=== PATIENT | female | born 1955 | race Caucasian/White ===

== ENCOUNTER 2018-07-20 10:27 | Outpatient (CLI) | payer MEDICARE ==
[~2018-07-20 10:27] MED LIST: Iopamidol 370 76% 75 ML VIAL FS ONE
--- NOTE | 2018-07-20 12:07 | CT ---
CT ABDOMEN AND PELVIS WITH IV CONTRAST: INDICATIONS: History of bloating, gas, diarrhea, and right lower quadrant abdominal pain for the past two months, with a history of a prior cholecystectomy and liver transplant. History of hepatitis-C. COMPARISON: CT abdomen and pelvis dated 08/26/2012 at [facility] and an additional comparison f rom [facility] dated 12/10/2010. CONTRAST: Isovue-370 60 mL. FINDINGS: There is worsening cirrhotic morphology of the transplanted liver, with extensive nodularity along th e contour of the liver, and heterogeneous enhancement. No definite focal mass lesion is evident. The choledochojejunostomy is again noted. There is worsening pneumobilia within the intrahepatic darlyn iary ducts. There is worsening mild to moderate ascites. The perisplenic varicosities appear slightly more promi nent, with worsening paraesophageal varicosities. The spleen measures 18 cm in length, which is stable to the prior exam. There is some subjective wall thickening involving portions of the distal stomach body, as well as an trum, and portions of the duodenum, which may reflect changes of underlying peptic ulcer disease. Th e sigmoid colon and rectum are largely decompressed, which limits the evaluation. A mild protoccoliti s within this region is not excluded. There is a normal appendix in the right lower quadrant. The small bowel has a normal caliber. There are mild vascular calcifications involving the abdominal aorta. No pathologically enlarged lymph nodes are grossly evident. No definite acute osseous abnormality is evident. IMPRESSION: 1. Worsening cirrhosis of the liver, with worsening portal hypertension. The perisplenic and paraes ophageal varicosities have worsened. There is worsening ascites. 2. Worsening pneumobilia from the choledochojejunostomy. 3. Suggestive wall thickening involving the gastric antrum and proximal duodenum may reflect underly ing peptic ulcer disease. 4. Decompression of the sigmoid colon and rectum limits evaluation. This could be related to perist alsis; however, a proctocolitis cannot be entire excluded. POS: LALO
== END 2018-07-20 10:28 | disposition home or self-care (01) ==
LOC: SCSCT 10:27
PROVIDERS: ATTEND Internal Medicine Gastroenterology
DX: K52.9 Noninfective gastroenteritis and colitis, unspecified (principal); R10.31 Right lower quadrant pain; D84.9 Immunodeficiency, unspecified; I85.00 Esophageal varices without bleeding; R18.8 Other ascites; K74.60 Unspecified cirrhosis of liver; K76.6 Portal hypertension; I86.8 Varicose veins of other specified sites; K83.8 Other specified diseases of biliary tract; Z94.4 Liver transplant status; Z98.0 Intestinal bypass and anastomosis status
CPT/HCPCS: 74177

== ENCOUNTER 2018-07-30 17:59 | Observation (INO) | payer MEDICARE ==
[2018-07-30] MEDS ORDERED: Morphine 10 MG/ML VIAL ONE (19:42)
[2018-07-30] MEDS ORDERED: hydrALAZINE 20 MG/ML VIAL ONE (19:43)
[2018-07-30] MEDS ORDERED: Ondansetron PF 4 MG/2 ML Vial ONE (19:43)
[2018-07-30 21:38] VITALS: BMI 22.3
[2018-07-30] MEDS ORDERED: Acetaminophen 325 MG TAB PO PRN (22:19)
[2018-07-30] MEDS ORDERED: hydrALAZINE 20 MG/ML VIAL SLOW IVP PRN (22:20)
[2018-07-30] MEDS ORDERED: Vancomycin HCl 25 MG/ML Oral PO SCH (22:30)
[2018-07-30] MEDS: Zolpidem Tartrate 5 MG TAB PO SCH (22:56)
[2018-07-30] MEDS: Nicotine 14 MG PATCH TOP SCH (22:57)
[2018-07-30] MEDS ORDERED: Zolpidem Tartrate 5 MG TAB PO SCH (23:00)
[2018-07-30] MEDS: Ondansetron PF 4 MG/2 ML Vial IVP PRN (23:05)
[2018-07-30] MEDS ORDERED: Tacrolimus 0.5 MG CAP PO SCH (23:45)
[2018-07-31] MEDS: Morphine 4 MG/ML VIAL SLOW IVP PRN ×5 (02:21→20:27)
[2018-07-31] MEDS ORDERED: Dextrose 50% Abboject 50 ML SYRINGE SLOW IVP PRN (03:57)
[2018-07-31] MEDS ORDERED: HumaLOG 300 UNITS/3 ML VIAL SC PRN (03:57)
[2018-07-31] MEDS ORDERED: Dextrose 5% in Water 1,000 ML IV PRN (03:57)
[2018-07-31] MEDS: cefTRIAXone\\ROCEPHIN 1 GM in Sodium Chloride 0.9% 100 ML IVPB SCH (04:58)
--- NOTE | 2018-07-31 05:15 | HP ---
PRIMARY CARE PHYSICIAN: Dr. Santosh Torrez. CODE STATUS: Full code. TIME OF EVALUATION: 9 p.m. CHIEF COMPLAINT: Abdominal pain and diarrhea. HISTORY OF PRESENT ILLNESS: This is a 63-year-old female with past medical history of C diff, hepatitis C, hypertension, diabetes, and previous liver transplant, came to the hospital after having abdominal pain that is severe and is diffuse, with no clear triggers, no alleviating factors. The patient has a history of recent C diff, and she reported that she has been having still more diarrhea. Symptoms are generalized pain that is dull in nature. Pain is 10/10 and needing opioid medication for optimal control, CAT scan showed the patient has significant ascites. REVIEW OF SYSTEMS: CONSTITUTIONAL: The patient had no fevers. She reported chills and generalized weakness. RESPIRATORY: No cough, sputum production, or shortness of breath. CARDIOVASCULAR: No chest pain or palpitations. GASTROINTESTINAL: The patient has nausea. No vomiting. Diarrhea. The patient also reported abdominal pain that is severe and diffuse as described in HPI. PARTY DIRECTOR: No dizziness, headache, or feeling lightheaded. GENITOURINARY: No burning on urination. EXTREMITIES: No leg swelling. All other systems were reviewed and negative except for the findings mentioned above. PAST MEDICAL HISTORY: As mentioned in HPI. PAST SURGICAL HISTORY: Liver transplant x2, tubal ligation, surgical history of cholecystectomy, and surgical history of tonsillectomy. PSYCHIATRIC HISTORY: Depression. FAMILY HISTORY: Reviewed and non contributory to current presentation. SOCIAL HISTORY: The patient uses drugs, abuses marijuana, last time using drugs three days ago. Currently uses tobacco, smokes half a pack per day. FAMILY HISTORY: Reviewed, noncontributory for current presentation. KNOWN ALLERGIES: Penicillin and shellfish-containing products. REPORTED MEDICATIONS: 1. Tacrolimus. 2. Levothyroxine. 3. Losartan. 4. Pantoprazole. 5. Venlafaxine. 6. Simvastatin. 7. Tacrolimus. 8. Eszopiclone. PHYSICAL EXAMINATION: VITAL SIGNS: On presentation; blood pressure with heart rate 69, respiratory rate was 12, and temperature 98.1, pain was 8, and oxygen saturation was 98% on room air. GENERAL APPEARANCE: The patient is alert, oriented, in distress due to pain. HEENT: Eyes, normal conjunctivae. Moist oral mucosa. Anicteric. No JVD. RESPIRATORY: Bilateral air entry. No rales. No wheezing. Symmetric expansion. CARDIOVASCULAR: The patient is mildly tachycardic on my examination, regular rhythm. No murmurs, no gallops. No edema. ABDOMEN: Soft, tender, mildly distended. MUSCULOSKELETAL: Baseline range of motion and strength. No tenderness. SKIN: Warm, intact. No pallor. No rash. No redness except for the right arm, that has some petechial ecchymosis after the patient had the blood pressure measured. Peripheral pulses are present. Capillary refill seems to be intact. NEURO: No evidence of any new focal weakness. Baseline speech. Cranial nerves seem to be intact. PSYCH: The patient is in good mood. No anxiety. Optimal judgment. DIAGNOSTIC DATA: CAT scan, worsened ascites since the prior study in January 2018. LABORATORY DATA: Labs were reviewed. The patient has lipase of 42, glucose 144 , BUN 20, creatinine 1.28, sodium 141, potassium 3.2, chloride 107, carbon dioxide 23, calcium 9.2, bilirubin 1.1 total, and alkaline phosphatase 63. LFTs were negative. Albumin 4.0. CBC; white count 3.0, hemoglobin 13.4, hematocrit 38.3, and platelets 61. ASSESSMENT AND PLAN: The patient will be placed in the hospital with following medical problems: 1. Severe abdominal pain. This could be related to possible underlying Clostridium difficile colitis, the patient had recent Clostridium difficile, had been treated for it and had not finished her medications. We will continue vancomycin p.o., we will follow Clostridium difficile test that is pending. 2. Possible Clostridium difficile colitis. Treatment as mentioned above. 3. Ascites. The patient with history of liver transplant and severe abdominal pain, possibility for SBP remains. We will place the patient on Rocephin 1 g now. The patient will need a tap and some studies in the morning for further diagnosis. 4. History of liver transplant. It is reported by the patient that liver had been failing in the past. We will reconcile the home medications and immunosuppressant therapy. 5. History of hepatitis C. LFTs are within normal range. This is chronic. 6. Uncontrolled hypertension, likely due to acute severe pain, we will reconcile home medications, we will adjust the treatment. We will treat the pain first. 7. Uncontrolled diabetes. We will place the patient on a sliding scale for optimal control. 8. Deep venous thrombosis prophylaxis. Job ID: [id number] MTDD
[2018-07-31 06:42] LABS: #Eosinphils 0.1 thou/uL (0.0-0.7); #Lymphocytes 0.6 thou/uL (1.20-3.40); #Monocytes 0.2 thou/uL (0.11-0.59); #Neutrophils 2.5 thou/uL (1.40-6.50); %Basophils 0.3 % (0.0-1.0); %Eosinophils 2.8 % (0.0-10.0); %Lymphocytes 18.7 % (21.0-51.0); %Monocytes 6.8 % (0.0-10.0); %Neutrophils 71.5 % (42.0-75.0); Mean Corpuscular HGB CONC 34.1 g/dL (32.0-36.0); Mean Corpuscular Hemoglobin 31.9 pg (27.0-31.0); Mean Corpuscular Volume 93.4 fL (78.0-98.0); Mean Platelet Volume 7.8 fL (7.4-10.4); Platelet Count 59 thou/uL (130-400); RBC Distribution Width 13.2 % (11.5-14.5); Red Blood Cell (RBC) Count 4.09 mill/uL (4.20-5.40); White Blood Cell (WBC) Count 3.4 thou/uL (4.8-10.8)
[2018-07-31 07:00] LABS: Anion Gap 14 mmol/L (10-20); BUN (Urea Nitrogen) 18 mg/dL (9.8-20.1); Calc. Creatinine Clearance 46 mL/min (70-130); Calcium 9.1 mg/dL (7.8-10.44); Carbon Dioxide 23 mmol/L (23-31); Chloride 105 mmol/L (98-107); Estimated GFR-MDRD 46; Glucose 139 mg/dL (80-115); Potassium 3.2 mmol/L (3.5-5.1); Sodium 139 mmol/L (136-145)
[2018-07-31] MEDS: Ondansetron PF 4 MG/2 ML Vial IVP PRN (07:55)
[2018-07-31] MEDS ORDERED: TACROLIMUS 0.1% TOP SCH (09:00)
[2018-07-31] MEDS ORDERED: Tacrolimus 1 MG CAP PO SCH (09:00)
[2018-07-31] MEDS ORDERED: Vancomycin HCl 25 MG/ML Oral PO SCH (09:00)
[2018-07-31] MEDS ORDERED: Prevnar 13-Val Conj/PF 0.5 ML SYRINGE IM ONE (09:00)
[2018-07-31] MEDS: Vancomycin HCl 25 MG/ML Oral PO SCH ×2 (09:00→14:31)
[2018-07-31] MEDS: Promethazine HCl 12.5 MG in Sodium Chloride 0.9% 50 ML IVPB PRN ×2 (09:38→20:20)
--- NOTE | 2018-07-31 14:16 | CON ---
DATE OF CONSULTATION: HISTORY OF PRESENT ILLNESS: The patient is a 63-year-old female, patient of Dr. Canales, who over the last several weeks has developed increasing abdominal pain, distention, nausea, and vomiting. She is status post a liver transplant x2 in 1999 for cirrhosis related to hepatitis C. The patient was treated for hepatitis C approximately 3 years ago and had according to the record sustained viral response. She had seen Dr. Canales approximately 6-7 years ago and then recently returned in June. She was treated for C. difficile based on antigen positive, toxin negative stool sample with positive lactoferrin. She reports she has had persistent diarrhea approximately 7-8 times per day without blood or mucus. Dr. Canales treated her with vancomycin for approximately 10 days with not much change in her diarrhea. She does report weight loss, but cannot quantify the amount. She underwent a CT in an outlying hospital, which according to the ER physician showed ascites, cirrhosis, but no other abnormalities. PAST MEDICAL HISTORY: Significant for: 1. Liver transplant in 1999 with the original transplanted liver failing. The patient had to undergo a subsequent choledochojejunostomy. 2. Chronic hepatitis C - status post treatment with sustained viral response. 3. Gastroesophageal reflux disease. 4. Anxiety disorder. 5. Diabetes mellitus 2 - no treatment for the last several months. 6. Hypertension. PAST SURGICAL HISTORY: Includes liver transplant x2, cholecystectomy, and tubal ligation. HOME MEDICATIONS: Include: 1. Prograf 1 mg p.o. q.a.m. and 0.5 mg p.o. q.p.m. 2. Effexor 150 mg p.o. daily. 3. Zocor 40 mg p.o. daily. 4. Cozaar 100 mg p.o. daily. 5. Synthroid 50 mcg p.o. daily. 6. Lunesta 1 mg p.o. at bedtime. 7. Pantoprazole 40 mg p.o. daily. ALLERGIES: INCLUDE LASIX, PENICILLIN, AND SHELLFISH. SOCIAL HISTORY: She does not drink. She does smoke 2-3 cigarettes per day. FAMILY HISTORY: Negative for GI or liver disease. REVIEW OF SYSTEMS: Ten systems were reviewed and were negative except for above. PHYSICAL EXAMINATION: VITAL SIGNS: Temperature 98.4, pulse 120, respiratory rate 18, blood pressure 149/50. GENERAL: Shows a well-developed, well-nourished white female, in no acute distress. HEENT: Unremarkable. NECK: Supple. CHEST: Clear. CARDIOVASCULAR: Regular rate and rhythm without murmurs or gallops. ABDOMEN: Soft, slightly protuberant. She has a transplant scar. She does have splenomegaly felt in the left upper quadrant. No hepatomegaly is appreciable. RECTAL: Deferred. EXTREMITIES: Showed no excessive fluid. LABORATORY DATA: Shows a white blood cell count of 3.4, hemoglobin 13, hematocrit 38.2, platelet counts 59. Chemistries show a potassium 3.2, creatinine 1.20, glucose 139, calcium 9.1. Reviewing records, the patient did have an abdominal and pelvic CT from 07/20/2018, which showed worsening cirrhosis of the liver and worsening portal hypertension with perisplenic and periesophageal varicosities, pneumobilia from previous choledochojejunostomy, some wall thickening of the gastric antrum and proximal duodenum. ASSESSMENT: 1. Right-sided abdominal pain - I suspect this is probably related to the patient's fairly new onset and worsening ascites. It appears fairly mild and the patient appears comfortable. It should not require intravenous narcotics. 2. Status post liver transplant. 3. Decompensated cirrhosis. 4. History of hepatitis C. 5. Status post choledochojejunostomy. 6. History of multiple episodes of pancreatitis. 7. Diabetes mellitus - the patient's blood sugars have been low and has not been presently treated. 8. Gastroesophageal reflux disease. 9. Abnormal CT of the antrum and body. 10. Ascites. RECOMMENDATIONS: 1. Begin diuretics to control ascites. 2. PPI. 3. EGD. 4. LFTs and amylase and lip[facility]. Job ID: [id number]
--- NOTE | 2018-07-31 14:39 | PDOC.PN ---
- Subjective Encounter Start Date: 07/31/18 Encounter Start Time: 14:37 Subjective: c/o severe abd pain, intractable nausea and diarrhea -: feels bad and feels that no one has done anything for her - Objective Resuscitation Status - Order Detail: 07/30/18 22:42 Resuscitation Status Routine Resuscitation Status: FULL: Full Resuscitation MAR Reviewed: Yes Vital Signs & Weight: Vital Signs (12 hours) Temp Pulse Resp BP BP Pulse Ox 07/31/18 11:20 98.4 F 120 H 18 149/50 H 96 07/31/18 08:32 76 07/31/18 08:00 97.9 F 76 20 204/92 H 95 07/31/18 04:00 98.4 F 74 20 155/71 H 96 Weight Weight 130 lb 1.164 oz I&O: 07/30/18 07/31/18 08/01/18 06:59 06:59 06:59 Intake Total 425 400 Balance 425 400 Result Diagrams: 07/31/18 05:48 07/31/18 05:47 Additional Labs: Accuchecks 07/31/18 07/31/18 11:20 04:27 POC Glucose 157 H 158 H Phys Exam - Physical Examination Constitutional: NAD uncomfortable HEENT: PERRLA, moist MMs, sclera anicteric, oral pharynx no lesions Neck: no nodes, no JVD, supple, full ROM Respiratory: no wheezing, no rales, no rhonchi, clear to auscultation bilateral Cardiovascular: RRR, no significant murmur Gastrointestinal: soft, positive bowel sounds +ve fluid wave,distended,mild TTP lower quadrants Musculoskeletal: no edema, pulses present Neurological: non-focal, normal sensation, moves all 4 limbs Psychiatric: normal affect, A&O x 3 Skin: no rash Dx/Plan (1) Abdominal pain Code(s): R10.9 - UNSPECIFIED ABDOMINAL PAIN Status: Acute (2) Intractable nausea and vomiting Code(s): R11.2 - NAUSEA WITH VOMITING, UNSPECIFIED Status: Acute (3) C. difficile diarrhea Code(s): A04.72 - ENTEROCOLITIS D/T CLOSTRIDIUM DIFFICILE, NOT SPCF RECUR Status: Acute (4) Ascites Code(s): R18.8 - OTHER ASCITES Status: Chronic Comment: on prophylactic Abx for SBP (5) Chronic liver disease and cirrhosis Code(s): K74.60 - UNSPECIFIED CIRRHOSIS OF LIVER; K76.9 - LIVER DISEASE, UNSPECIFIED Status: Chronic (6) Hepatitis C Code(s): B19.20 - UNSPECIFIED VIRAL HEPATITIS C WITHOUT HEPATIC COMA Status: Chronic (7) S/P liver transplant Code(s): Z94.4 - LIVER TRANSPLANT STATUS Status: Chronic - Plan DVT proph w/SCDs EGD per GI.cont supportive care -: Increase dose of PO Vanco. PRN anti emetics -: may need paracentesis. cont rocephin prophylactically -: repeat Cdif testing -: start diuretics and check lipase.am labs. * . Review of Systems - Review of Systems Constitutional: weakness, malaise. negative: fever, chills, sweats, other Respiratory: negative: Cough, Dry, Shortness of Breath, Hemoptysis, SOB with Excertion, Pleuritic Pain, Sputum, Wheezing Gastrointestinal: Nausea, Vomiting, Abdominal Pain, Diarrhea Genitourinary: negative: Dysuria, Frequency, Incontinence, Hematuria, Retention , Other Musculoskeletal: negative: Neck Pain, Shoulder Pain, Arm Pain, Back Pain, Hand Pain, Leg Pain, Foot Pain, Other Skin: negative: Rash, Lesions, [place], Bruising, Other Neurological: negative: Weakness, Numbness, Incoordination, Change in Speech, Confusion, Seizures, Other - Medications/Allergies Allergies/Adverse Reactions: Allergies Allergy/AdvReac Type Severity Reaction Status Date / Time Penicillins Allergy Verified 07/30/18 21:24 shellfish derived Allergy Verified 07/30/18 21:25 Medications: Current Medications Acetaminophen (Tylenol) 650 mg PO Q4H PRN PRN Reason: Headache/Fever or Pain 1-5 Dextrose/Water (Dextrose 50%) 25 gm SLOW IVP PRN PRN PRN Reason: Hypoglycemia Enoxaparin Sodium (Lovenox) 40 mg SC 0900 GUI Furosemide (Lasix) 40 mg PO DAILY-AC GUI Glucagon (Glucagon) 1 mg IM PRN PRN PRN Reason: Hypoglycemia Hydralazine HCl (Apresoline) 10 mg SLOW IVP Q4H PRN PRN Reason: SBP>180 Last Admin: 07/31/18 08:32 Dose: 10 mg Dextrose/Water (D5w) 1,000 mls @ 0 mls/hr IV .Q0M PRN PRN Reason: Hypoglycemia Ceftriaxone Sodium 1 gm/ (Sodium Chloride) 100 mls @ 200 mls/hr IVPB Q24HR [facility] Last Admin: 07/31/18 04:58 Dose: 100 mls Promethazine HCl 12.5 mg/ (Sodium Chloride) 50.5 mls @ 202 mls/hr IVPB Q6H PRN PRN Reason: Nausea Last Admin: 07/31/18 09:38 Dose: 50.5 mls Insulin Human Lispro (Humalog) 0 units SC .MILD SLIDING SCALE PRN PRN Reason: Mild Correctional Scale Morphine Sulfate (Morphine) 2 mg SLOW IVP Q4H PRN PRN Reason: Moderate to Severe Pain (6-10) Last Admin: 07/31/18 09:28 Dose: 2 mg Nicotine (Nicoderm Patch) 14 mg TOP Q24HR [facility] Last Admin: 07/30/18 22:57 Dose: 14 mg Ondansetron HCl (Zofran) 4 mg IVP Q4H PRN PRN Reason: Nausea/Vomiting Last Admin: 07/31/18 07:55 Dose: 4 mg Simvastatin (Zocor) 40 mg PO HS GUI Spironolactone (Aldactone) 25 mg PO BID-WM GUI Tacrolimus (Prograf) 0.5 mg PO HS GUI Tacrolimus (Prograf) 1 mg PO QAM GUI Zolpidem Tartrate (Ambien) 10 mg PO HS GUI
[2018-07-31] MEDS: Tacrolimus 0.5 MG CAP PO SCH (16:41)
[2018-07-31] MEDS: Spironolactone 25 MG TAB PO SCH (16:41)
[2018-07-31] MEDS: Enoxaparin Sodium 40 MG/0.4 ML SYRINGE SC SCH (16:47)
[2018-07-31] MEDS: Zolpidem Tartrate 5 MG TAB PO SCH (20:18)
[2018-07-31] MEDS: Nicotine 14 MG PATCH TOP SCH (20:48)
[2018-07-31] MEDS ORDERED: Simvastatin 40 MG TAB PO SCH (21:00)
[2018-07-31] MEDS ORDERED: Tacrolimus 0.5 MG CAP PO SCH (21:00)
[2018-08-01] MEDS: Morphine 4 MG/ML VIAL SLOW IVP PRN (02:12)
[2018-08-01] MEDS: cefTRIAXone\\ROCEPHIN 1 GM in Sodium Chloride 0.9% 100 ML IVPB SCH (04:24)
[2018-08-01] MEDS: Promethazine HCl 12.5 MG in Sodium Chloride 0.9% 50 ML IVPB PRN (06:01)
[2018-08-01] MEDS ORDERED: Furosemide 40 MG TAB PO SCH (07:30)
[2018-08-01] MEDS ORDERED: Promethazine HCl 25 MG/ML VIAL SLOW IVP PRN (09:53)
[2018-08-01] MEDS ORDERED: Ondansetron HCl/PF 4 MG/2 ML Vial IVP PRN (09:53)
[2018-08-01] MEDS ORDERED: Promethazine HCl 25 MG/ML VIAL IM PRN (09:53)
--- NOTE | 2018-08-01 10:22 | OP ---
DATE OF PROCEDURE: 08/01/2018 PREOPERATIVE DIAGNOSES: 1. Abnormal CT scan of the stomach. 2. Cirrhosis. DESCRIPTION OF PROCEDURE: After informed consent was obtained, the patient was placed in left lateral decubitus position. Anesthesia was administered per the Anesthesia Department. Forward-viewing endoscope was inserted into esophagus under direct visualization with ease and passed to the second portion of the duodenum with ease. Second portion of duodenum and duodenal bulb were normal. The pylorus, antrum, body, fundus, and cardia were normal. Retroflexion in the stomach was normal. Esophagus normal throughout. ASSESSMENT: Normal esophagogastroduodenoscopy. RECOMMENDATIONS: 1. Continue diuretics for ascites. 2. Stable for discharge from GI standpoint. Job ID: [id number]
[2018-08-01 10:51] VITALS: BP 175/76; TEMP 98.7
[2018-08-01] MEDS ORDERED: Ketamine 50 MG/ML (10ML VIAL) ONE (11:21)
[2018-08-01] MEDS: Tacrolimus 0.5 MG CAP PO SCH (11:49)
[2018-08-01] MEDS: Spironolactone 25 MG TAB PO SCH (11:49)
[2018-08-01] MEDS: Enoxaparin Sodium 40 MG/0.4 ML SYRINGE SC SCH (11:49)
[2018-08-01] MEDS ORDERED: PROPOFOL 200 MG/20 ML VIAL ONE (13:52)
--- NOTE | 2018-08-01 15:52 | DIS ---
DATE OF ADMISSION: 07/30/2018 DATE OF DISCHARGE: 08/01/2018 CONDITION: At the time of discharge, stable and improved. DISCHARGE DISPOSITION: Home with home health. DISCHARGE DIAGNOSES: 1. Liver cirrhosis with resultant ascites. 2. Intractable abdominal pain, nausea and vomiting, much improved. 3. Recent history of Clostridium difficile diarrhea, status post treatment. 4. History of chronic hepatitis C status post treatment. DISCHARGE MEDICATIONS: New medications: 1. Lasix 40 mg daily. 2. Ciprofloxacin 500 mg p.o. b.i.d. for 5 more days. 3. Florastor 250 mg daily. 4. Zofran p.r.n. 5. Nicotine patch. 6. Aldactone 25 mg daily. Resume home medications as follows: 1. Prograf 0.5 mg in the evening and 1 mg in the morning. 2. Effexor XR 150 mg daily. 3. Zocor 40 mg daily. 4. Levothyroxine 50 mcg daily. 5. Lunesta 1 mg daily. 6. Protonix 40 mg daily. IN-HOUSE CONSULTATION: Gastroenterology, Dr. Benny Grimes. PROCEDURES DONE IN THE HOSPITAL: 1. EGD which shows no changes and is normal. 2. CT scan of the abdomen and pelvis done on 07/20/2018, which shows findings of ascites and worsening cirrhosis with portal hypertension and perisplenic and periesophageal varices. This was done as an outpatient on 07/20/2018, approximately 11 days prior to admission. HISTORY OF PRESENTING ILLNESS: Ms. Crandall is a 63-year-old female with history of chronic hepatitis C with resultant cirrhosis requiring liver transplant and recent C. difficile colitis under the care of her manager chemistry, Dr. Canales, who presented to the emergency room with complaints of abdominal pain and diarrhea. She was empirically started on SBP prophylaxis as the recent CT scan done in the outpatient setting showed ascites and worsening cirrhosis. Please see admission history and physical for further details. C. diff testing was sent again. HOSPITAL COURSE: Gastroenterology was consulted and Dr. Grimes saw the patient. Vancomycin was stopped as the patient has finished treatment for 10 days with oral vancomycin in the outpatient setting. An EGD was done which was unremarkable. The patient was found to have ascites, but no acute abdomen. She was started on diuretics. She was empirically started on Rocephin even though she did not have any signs symptoms to suggest peritonitis or any kind of peritonitis. Her labs were checked and her amylase, lipase, and alpha-fetoprotein markers were within normal range. Her nausea, vomiting, and abdominal pain improved to a considerable degree, even though she continued to have complaints that she does not feel well. Gastroenterology signed off on this patient and their recommendation was to discharge home on diuretics. The patient lives alone with the roommate and exhibited difficulty taking care of herself and difficulty with her transportation needs. Home health was suggested and will be arranged. seo manager has already discussed this with the patient. Other than that, the patient is medically stable and has been cleared from medical standpoint for discharge. I have seen and examined the patient prior to discharge. Physical examination this morning, temperature 98.7, pulse of 86, respirations 18, saturating 96% on room air, blood pressure 175/76. No acute distress. She is definitely upset that she is being discharged, even though she is not completely treated. I have highly encouraged her to follow up with the transplant doctors in [place] as she seems to have worsening cirrhosis. At some point, she will require a paracentesis, but at this time, she will be tried on diuretics first and will follow up with Dr. Canales in the outpatient setting. This was discussed with Dr. Grimes who is taxation consultant for Dr. Canales. The patient was given prescription for Zofran, but pain medications were not provided given her extensive cirrhosis. Lasix and Aldactone prescriptions only provided for one week as the patient has some elevation in her creatinine. This patient remains high risk for readmission given her worsening cirrhosis, which I have advised again is not curable. She would require a paracentesis in the near future for symptomatic benefit. Currently feels better. TIME SPENT: Total time spent in the discharge, 35 minutes. Job ID: [id number]
== END 2018-08-01 12:26 | disposition home health service (06) ==
LOC: ERS 17:59 → T4-A 19:36
PROVIDERS: ADMIT Hospitalist; ATTEND Hospitalist
PROC: 0DJ08ZZ Inspection of Upper Intestinal Tract, Via Natural or Artificial Opening Endoscopic (ICD-10-PCS; principal; 2018-07-30)
DX: K74.60 Unspecified cirrhosis of liver (principal); R18.8 Other ascites; F32.9 Major depressive disorder, single episode, unspecified; F17.210 Nicotine dependence, cigarettes, uncomplicated; F12.10 Cannabis abuse, uncomplicated; I10 Essential (primary) hypertension; E11.9 Type 2 diabetes mellitus without complications; K21.9 Gastro-esophageal reflux disease without esophagitis; F41.9 Anxiety disorder, unspecified; B17.10 Acute hepatitis C without hepatic coma; B18.2 Chronic viral hepatitis C; Z94.4 Liver transplant status; Z79.899 Other long term (current) drug therapy; Z88.0 Allergy status to penicillin; Z91.013 Allergy to seafood
CPT/HCPCS: 43235; 80048; 82105; 82150; 82962 ×2; 83690; 85025; 93005; 96365; 96366; 96367; 96372; 96375 ×2; 96376 ×3; 97139; 99284; G0378 ×2; 36415; 36416; 93010; 96374; J0360; J0696; J1650; J2270; J2405; J2550; J2704; J7050; J7507

== ENCOUNTER 2020-10-24 20:41 | Inpatient (IN) | payer MEDICARE ==
[2020-10-24 22:23] VITALS: BMI 18.8
[2020-10-24] MEDS ORDERED: Ondansetron PF 4 MG/2 ML Vial IVP PRN (22:55)
[2020-10-24] MEDS ORDERED: Ondansetron ODT 4 MG TAB PO PRN (22:55)
[2020-10-24] MEDS ORDERED: Electrolyte Replacement Protocol 1 EACH FS SCH (23:15)
[2020-10-24] MEDS ORDERED: Potassium Chloride 20 MEQ TAB PO SCH (23:15)
[2020-10-24] MEDS: Fentanyl 100 MCG/2 ML VIAL SLOW IVP PRN (23:22)
[2020-10-24] MEDS ORDERED: Furosemide 40 MG/4 ML VIAL SLOW IVP SCH (23:30)
[2020-10-25] MEDS ORDERED: Dextrose 5% in Water 1,000 ML IV PRN (00:18)
[2020-10-25] MEDS ORDERED: Dextrose 50% Abboject 50 ML SYRINGE SLOW IVP PRN (00:18)
[2020-10-25] MEDS ORDERED: HumaLOG 300 UNITS/3 ML VIAL SC PRN (00:18)
[2020-10-25] MEDS: Fentanyl 100 MCG/2 ML VIAL SLOW IVP PRN ×3 (01:22→06:05)
[2020-10-25 05:12] VITALS: BP 147/71; TEMP 98.3
[2020-10-25 06:12] LABS: SARS-CoV-2 PCR by NAA Not Detected (NotDetected)
[2020-10-25 06:25] LABS: Anion Gap 12 mmol/L (10-20); BUN (Urea Nitrogen) 17 mg/dL (9.8-20.1); Calc. Creatinine Clearance 26 mL/min (70-130); Calcium 7.9 mg/dL (7.8-10.44); Carbon Dioxide 22 mmol/L (23-31); Chloride 104 mmol/L (98-107); Glucose 111 mg/dL (80-115); Magnesium 1.1 mg/dL (1.6-2.6); Potassium 3.4 mmol/L (3.5-5.1); Sodium 135 mmol/L (136-145)
[2020-10-25 06:40] LABS: #Eosinphils 0.1 thou/uL (0.0-0.7); #Lymphocytes 0.5 thou/uL (1.20-3.40); #Monocytes 0.3 thou/uL (0.11-0.59); %Basophils 0.1 % (0.0-1.0); %Eosinophils 2.8 % (0.0-10.0); %Lymphocytes 10.5 % (21.0-51.0); %Monocytes 5.9 % (0.0-10.0); %Neutrophils 80.7 % (42.0-75.0); Hemoglobin 9.8 g/dL (12.0-16.0); Mean Corpuscular Hemoglobin 30.5 pg (27.0-31.0); Mean Corpuscular Volume 89.7 fL (78.0-98.0); Mean Platelet Volume 7.4 fL (7.4-10.4); Platelet Count 74 thou/uL (130-400); RBC Distribution Width 13.5 % (11.5-14.5); Red Blood Cell (RBC) Count 3.22 mill/uL (4.20-5.40); White Blood Cell (WBC) Count 4.9 thou/uL (4.8-10.8)
[2020-10-25] MEDS ORDERED: Potassium Chloride 20 MEQ TAB PO SCH (07:00)
[2020-10-25] MEDS ORDERED: Magnesium Sulfate 4 GM in Sodium Chloride 0.9% 250 ML 250 ML IVPB SCH (07:00)
[2020-10-25] MEDS ORDERED: traMADol HCl 50 MG TAB PO PRN (07:16)
[2020-10-25] MEDS ORDERED: Morphine 2 MG/ML VIAL SLOW IVP PRN (07:16)
[2020-10-25] MEDS ORDERED: Morphine 4 MG/ML VIAL SLOW IVP PRN (07:22)
[2020-10-25] MEDS ORDERED: Venlafaxine HCl XR 150 MG CAP PO SCH (09:00)
[2020-10-25] MEDS ORDERED: Losartan 25 MG TAB PO SCH (09:00)
[2020-10-25] MEDS ORDERED: Furosemide 40 MG/4 ML VIAL SLOW IVP SCH ×2 (09:00)
[2020-10-25] MEDS ORDERED: Enoxaparin Sodium 40 MG/0.4 ML SYRINGE SC SCH (09:00)
[2020-10-25] MEDS ORDERED: Tacrolimus 0.5 MG CAP PO SCH (21:00)
[2020-10-25] MEDS ORDERED: Prevnar 13-Val Conj/PF 0.5 ML SYRINGE IM ONE (21:00)
[2020-10-25] MEDS ORDERED: traZODone HCl 50 MG TAB PO SCH (21:00)
== END 2020-10-25 07:30 | disposition left against medical advice (07) | DRG 443 ==
LOC: T4-B 21:39
PROVIDERS: ADMIT Student in an Organized Health Care Education/Training Program; ATTEND Student in an Organized Health Care Education/Training Program
DX: T86.49 Other complications of liver transplant (principal); K70.31 Alcoholic cirrhosis of liver with ascites; I10 Essential (primary) hypertension; E11.9 Type 2 diabetes mellitus without complications; Z20.822 Contact with and (suspected) exposure to COVID-19; B19.20 Unspecified viral hepatitis C without hepatic coma; F17.210 Nicotine dependence, cigarettes, uncomplicated; D69.6 Thrombocytopenia, unspecified; D63.8 Anemia in other chronic diseases classified elsewhere; E87.6 Hypokalemia; R19.7 Diarrhea, unspecified; Z91.013 Allergy to seafood; Z88.0 Allergy status to penicillin; Z79.899 Other long term (current) drug therapy; Z98.51 Tubal ligation status; Z90.49 Acquired absence of other specified parts of digestive tract; Z90.89 Acquired absence of other organs; Y83.0 Surgical operation with transplant of whole organ as the cause of abnormal reaction of the patient, or of later complication, without mention of misadventure at the time of the procedure
CPT/HCPCS: 36415; 36416; 80048; 83735; 85025; 87635; J1940; J3010; U0003; U0005

== ENCOUNTER 2020-11-10 20:56 | Inpatient (IN) | payer MEDICARE ==
[2020-11-10 21:26] LABS: #Eosinphils 0.3 thou/uL (0.0-0.7); #Lymphocytes 0.7 thou/uL (1.20-3.40); #Monocytes 0.3 thou/uL (0.11-0.59); #Neutrophils 3.6 thou/uL (1.40-6.50); %Basophils 0.7 % (0.0-1.0); %Eosinophils 6.4 % (0.0-10.0); %Lymphocytes 13.7 % (21.0-51.0); %Monocytes 5.6 % (0.0-10.0); %Neutrophils 73.6 % (42.0-75.0); Hemoglobin 9.4 g/dL (12.0-16.0); Mean Corpuscular HGB CONC 34.6 g/dL (32.0-36.0); Mean Corpuscular Hemoglobin 30.9 pg (27.0-31.0); Mean Corpuscular Volume 89.3 fL (78.0-98.0); Mean Platelet Volume 6.6 fL (7.4-10.4); Platelet Count 106 thou/uL (130-400); RBC Distribution Width 14.6 % (11.5-14.5); Red Blood Cell (RBC) Count 3.06 mill/uL (4.20-5.40)
[2020-11-10 21:38] LABS: INR-International Normal Ratio 1.3; Prothrombin Time 16.2 sec (12.0-14.7)
[2020-11-10 21:45] LABS: ALT (SGPT) 11 U/L (8-55); AST (SGOT) 16 U/L (5-34); Albumin 3.1 g/dL (3.4-4.8); Alkaline Phosphatase 90 U/L (40-110); Anion Gap 12 mmol/L (10-20); BUN (Urea Nitrogen) 19 mg/dL (9.8-20.1); Bilirubin, Total 0.4 mg/dL (0.2-1.2); Calc. Creatinine Clearance 0 mL/min (70-130); Calcium 7.9 mg/dL (7.8-10.44); Carbon Dioxide 20 mmol/L (23-31); Chloride 106 mmol/L (98-107); Globulin 3.4 g/dL (2.4-3.5); Glucose 106 mg/dL (80-115); Potassium 4.1 mmol/L (3.5-5.1); Protein, Total 6.5 g/dL (5.8-8.1); Sodium 134 mmol/L (136-145)
[2020-11-10] MEDS ORDERED: Ondansetron PF 4 MG/2 ML Vial ONE (21:59)
[2020-11-10] MEDS ORDERED: Morphine 4 MG/ML VIAL ONE (21:59)
[2020-11-11] MEDS ORDERED: Ondansetron PF 4 MG/2 ML Vial IVP PRN (00:15)
[2020-11-11] MEDS ORDERED: Ondansetron ODT 4 MG TAB SL PRN (00:15)
[2020-11-11] MEDS: Morphine 4 MG/ML VIAL SLOW IVP PRN ×2 (00:16→02:10)
[2020-11-11 00:52] VITALS: BMI 19.7
[2020-11-11] MEDS ORDERED: Metoclopramide HCl 10 MG/2 ML VIAL IVP PRN (01:15)
[2020-11-11 01:43] LABS: SARS-CoV-2 NAA Rapid Test Not Detected (NotDetected)
[2020-11-11] MEDS ORDERED: Acetaminophen 325 MG TAB PO PRN (04:06)
[2020-11-11] MEDS: Nicotine 14 MG PATCH TD SCH (05:00)
[2020-11-11] MEDS: Vancomycin HCl 25 MG/ML Oral PO SCH ×4 (05:00→23:06)
[2020-11-11] MEDS: Levothyroxine Sodium 50 MCG TAB PO SCH (05:00)
[2020-11-11] MEDS ORDERED: cefTRIAXone\\ROCEPHIN 2 GM in Sodium Chloride 0.9% 100 ML IVPB SCH (05:00)
[2020-11-11] MEDS ORDERED: Morphine 2 MG/ML VIAL SLOW IVP SCH (05:30)
[2020-11-11] MEDS ORDERED: Dextrose 50% Abboject 50 ML SYRINGE SLOW IVP PRN (08:18)
[2020-11-11] MEDS ORDERED: Dextrose 5% in Water 1,000 ML IV PRN (08:18)
[2020-11-11] MEDS ORDERED: HumaLOG 300 UNITS/3 ML VIAL SC PRN ×2 (08:18)
[2020-11-11] MEDS ORDERED: Morphine 2 MG/ML VIAL SLOW IVP PRN (08:25)
[2020-11-11] MEDS ORDERED: Spironolactone 25 MG TAB PO SCH (09:00)
[2020-11-11] MEDS: Amlodipine 10 MG TAB PO SCH (09:33)
[2020-11-11] MEDS: Furosemide 20 MG TAB PO SCH (09:33)
[2020-11-11] MEDS: Floranex Packet PO SCH (09:34)
[2020-11-11] MEDS: Tacrolimus 1 MG CAP PO SCH (09:36)
[2020-11-11] MEDS ORDERED: traMADol HCl 50 MG TAB PO PRN (10:04)
[2020-11-11] MEDS: traMADol HCl 50 MG TAB PO PRN (10:31)
[2020-11-11] MEDS: Morphine 2 MG/ML VIAL SLOW IVP PRN ×3 (12:53→21:11)
[2020-11-11] MEDS ORDERED: Tacrolimus 0.5 MG CAP PO SCH (21:00)
[2020-11-12] MEDS: Morphine 2 MG/ML VIAL SLOW IVP PRN ×2 (01:47→05:40)
[2020-11-12 05:33] LABS: #Eosinphils 0.3 thou/uL (0.0-0.7); #Lymphocytes 0.8 thou/uL (1.20-3.40); #Monocytes 0.3 thou/uL (0.11-0.59); #Neutrophils 2.8 thou/uL (1.40-6.50); %Basophils 0.9 % (0.0-1.0); %Eosinophils 7.3 % (0.0-10.0); %Lymphocytes 18.5 % (21.0-51.0); %Monocytes 6.4 % (0.0-10.0); %Neutrophils 66.8 % (42.0-75.0); Hemoglobin 9.4 g/dL (12.0-16.0); Mean Corpuscular HGB CONC 33.5 g/dL (32.0-36.0); Mean Corpuscular Hemoglobin 30.2 pg (27.0-31.0); Mean Corpuscular Volume 90.1 fL (78.0-98.0); Mean Platelet Volume 6.5 fL (7.4-10.4); Platelet Count 95 thou/uL (130-400); RBC Distribution Width 15.1 % (11.5-14.5); Red Blood Cell (RBC) Count 3.12 mill/uL (4.20-5.40); White Blood Cell (WBC) Count 4.2 thou/uL (4.8-10.8)
[2020-11-12] MEDS: Vancomycin HCl 25 MG/ML Oral PO SCH (05:39)
[2020-11-12] MEDS: Nicotine 14 MG PATCH TD SCH (05:40)
[2020-11-12] MEDS: Levothyroxine Sodium 50 MCG TAB PO SCH (05:40)
[2020-11-12 05:46] LABS: Anion Gap 10 mmol/L (10-20); BUN (Urea Nitrogen) 18 mg/dL (9.8-20.1); Calc. Creatinine Clearance 28 mL/min (70-130); Calcium 7.9 mg/dL (7.8-10.44); Carbon Dioxide 23 mmol/L (23-31); Chloride 107 mmol/L (98-107); Glucose 112 mg/dL (80-115); Magnesium 1.2 mg/dL (1.6-2.6); Potassium 4.6 mmol/L (3.5-5.1); Sodium 135 mmol/L (136-145)
[2020-11-12 05:47] VITALS: TEMP 98.3
[2020-11-12 08:01] VITALS: BP 147/70
[2020-11-12] MEDS: Amlodipine 10 MG TAB PO SCH (08:46)
[2020-11-12] MEDS: Furosemide 20 MG TAB PO SCH (08:47)
[2020-11-12] MEDS: traMADol HCl 50 MG TAB PO PRN (08:52)
[2020-11-12] MEDS: Floranex Packet PO SCH (08:52)
[2020-11-12] MEDS: Tacrolimus 1 MG CAP PO SCH (08:52)
[2020-11-12] MEDS ORDERED: Spironolactone 100 MG TAB PO SCH (09:00)
[2020-11-12] MEDS ORDERED: Magnesium 2 GM/50 ML 2 GM in Premix Bag 1 BAG IVPB SCH (09:15)
[2020-11-12] MEDS ORDERED: Magnesium Sulfate 4 GM in Sodium Chloride 0.9% 250 ML 250 ML IVPB SCH (09:45)
[2020-11-12] MEDS ORDERED: Magnesium Oxide 400 MG TAB PO SCH (10:00)
[2020-11-13] MEDS ORDERED: Magnesium Oxide 400 MG TAB PO SCH (09:00)
== END 2020-11-12 10:20 | disposition home or self-care (01) | DRG 442 ==
LOC: ERS 20:56 → SURG A 22:29
PROVIDERS: ADMIT Internal Medicine; ATTEND Internal Medicine
DX: T86.49 Other complications of liver transplant (principal); R18.8 Other ascites; N17.9 Acute kidney failure, unspecified; E87.1 Hypo-osmolality and hyponatremia; A04.71 Enterocolitis due to Clostridium difficile, recurrent; Z20.822 Contact with and (suspected) exposure to COVID-19; N18.30 Chronic kidney disease, stage 3 unspecified; E83.42 Hypomagnesemia; F12.10 Cannabis abuse, uncomplicated; F17.210 Nicotine dependence, cigarettes, uncomplicated; D63.1 Anemia in chronic kidney disease; D69.6 Thrombocytopenia, unspecified; E03.9 Hypothyroidism, unspecified; K21.9 Gastro-esophageal reflux disease without esophagitis; Y83.0 Surgical operation with transplant of whole organ as the cause of abnormal reaction of the patient, or of later complication, without mention of misadventure at the time of the procedure; K72.90 Hepatic failure, unspecified without coma; K74.60 Unspecified cirrhosis of liver; E86.9 Volume depletion, unspecified; T46.5X5A Adverse effect of other antihypertensive drugs, initial encounter; Z28.21 Immunization not carried out because of patient refusal; Z88.8 Allergy status to other drugs, medicaments and biological substances; Z88.0 Allergy status to penicillin; Z91.013 Allergy to seafood; Z98.51 Tubal ligation status; Z87.19 Personal history of other diseases of the digestive system; Z79.899 Other long term (current) drug therapy; Z79.890 Hormone replacement therapy; Z90.49 Acquired absence of other specified parts of digestive tract; Z90.89 Acquired absence of other organs; Z86.19 Personal history of other infectious and parasitic diseases; E11.9 Type 2 diabetes mellitus without complications
CPT/HCPCS: 36415; 36416; 74018; 76705; 80048; 80053; 80197; 83735; 85025; 85610; 85730; 96374; 96375; J0696; J2270; J2405; J3490; J7507; U0002; U0005

== ENCOUNTER 2020-11-22 12:35 | Emergency (ER) | payer MEDICARE ==
[2020-11-22 12:59] LABS: #Eosinphils 0.2 thou/uL (0.0-0.7); #Lymphocytes 0.5 thou/uL (1.20-3.40); #Monocytes 0.2 thou/uL (0.11-0.59); #Neutrophils 2.2 thou/uL (1.40-6.50); %Basophils 0.6 % (0.0-1.0); %Eosinophils 5.9 % (0.0-10.0); %Monocytes 5.7 % (0.0-10.0); %Neutrophils 70.9 % (42.0-75.0); Hemoglobin 10.9 g/dL (12.0-16.0); Mean Corpuscular HGB CONC 33.8 g/dL (32.0-36.0); Mean Corpuscular Hemoglobin 30.8 pg (27.0-31.0); Mean Corpuscular Volume 91.2 fL (78.0-98.0); Mean Platelet Volume 7.1 fL (7.4-10.4); Platelet Count 89 thou/uL (130-400); RBC Distribution Width 14.9 % (11.5-14.5); Red Blood Cell (RBC) Count 3.55 mill/uL (4.20-5.40); White Blood Cell (WBC) Count 3.1 thou/uL (4.8-10.8)
[2020-11-22 13:19] LABS: ALT (SGPT) 13 U/L (8-55); AST (SGOT) 19 U/L (5-34); Albumin 3.5 g/dL (3.4-4.8); Alkaline Phosphatase 97 U/L (40-110); Anion Gap 13 mmol/L (10-20); BUN (Urea Nitrogen) 21 mg/dL (9.8-20.1); Bilirubin, Total 0.3 mg/dL (0.2-1.2); Calc. Creatinine Clearance 0 mL/min (70-130); Calcium 8.6 mg/dL (7.8-10.44); Carbon Dioxide 21 mmol/L (23-31); Chloride 106 mmol/L (98-107); Globulin 3.8 g/dL (2.4-3.5); Glucose 186 mg/dL (80-115); Potassium 4.5 mmol/L (3.5-5.1); Protein, Total 7.3 g/dL (5.8-8.1); Sodium 135 mmol/L (136-145)
[2020-11-22 14:53] LABS: INR-International Normal Ratio 1.2
[2020-11-22 15:24] LABS: Bilirubin Negative (Negative); Blood, Urine Trace (Negative); Glucose, Urine (Dipstick) Negative (Negative); Ketone, Urine Negative (Negative); Leukocyte Negative (Negative); Nitrite Negative (Negative); Protein, Urine (Dipstick) Negative (Neg-Trace); Specific Gravity, Urine 1.015 (1.005-1.030); Urobilinogen 0.2 mg/dL (Less than 2); pH, Urine 5.5 (5.0-9.0)
[2020-11-22 15:37] LABS: Bacteria/HPF None Seen HPF (None Seen); RBC/HPF 0-3 HPF (0-3); Squamous Epithelial None Seen HPF (0-3); WBC/HPF 0-3 HPF (0-3)
[2020-11-22 15:38] LABS: Clarity Clear (Clear)
[2020-11-22] MEDS ORDERED: Fentanyl 100 MCG/2 ML VIAL ONE ×2 (15:50→17:22)
[2020-11-22] MEDS ORDERED: cefTRIAXone\\ROCEPHIN 1 GM VIAL ONE (16:14)
== END 2020-11-22 19:56 | disposition home or self-care (01) ==
LOC: ERS 12:35
DX: R18.8 Other ascites (principal); I10 Essential (primary) hypertension; F17.210 Nicotine dependence, cigarettes, uncomplicated; Z79.899 Other long term (current) drug therapy
CPT/HCPCS: 36415; 49083; 71045; 74176; 80053; 81003; 83605; 83690; 83880; 84484; 85025; 85610; 87040; 87086; 93005; 94760; 96365; 96375; 96376; J0696; J3010

== ENCOUNTER 2020-12-07 09:40 | Day surgery (SDC) | payer MEDICARE ==
[2020-12-05 14:53] VITALS: BMI 20.9
[2020-12-07] MEDS ORDERED: Lidocaine 1% PF 5 ML VIAL ONE (10:04)
[2020-12-07] MEDS ORDERED: Sodium Bicarbonate 2.5 MEQ/5 ML VIAL ONE (10:04)
[2020-12-07 12:12] VITALS: BP 136/70; TEMP 98.2
== END 2020-12-07 11:15 | disposition home or self-care (01) ==
LOC: ULT 09:40
PROVIDERS: ATTEND Physician Assistant Medical
PROC: 0W9G3ZZ Drainage of Peritoneal Cavity, Percutaneous Approach (ICD-10-PCS; principal; 2020-12-07)
DX: K74.69 Other cirrhosis of liver (principal); R18.8 Other ascites; E11.9 Type 2 diabetes mellitus without complications; I10 Essential (primary) hypertension; E78.5 Hyperlipidemia, unspecified; F17.210 Nicotine dependence, cigarettes, uncomplicated; F12.10 Cannabis abuse, uncomplicated; E03.9 Hypothyroidism, unspecified; K21.9 Gastro-esophageal reflux disease without esophagitis; Z79.899 Other long term (current) drug therapy; Z88.0 Allergy status to penicillin; Z88.8 Allergy status to other drugs, medicaments and biological substances; Z91.013 Allergy to seafood; Z91.040 Latex allergy status; Z94.4 Liver transplant status
CPT/HCPCS: 36415; 49083; 80069

== ENCOUNTER 2021-01-16 10:02 | Day surgery (SDC) | payer MEDICARE ==
[2021-01-15 07:33] VITALS: BMI 20.9
[2021-01-16] MEDS ORDERED: Lidocaine 1% PF 5 ML VIAL ONE (10:09)
[2021-01-16] MEDS ORDERED: Sodium Bicarbonate 2.5 MEQ/5 ML VIAL ONE (10:09)
[2021-01-16 15:17] VITALS: BP 110/59
== END 2021-01-16 11:35 | disposition home or self-care (01) ==
LOC: ULT 10:02
PROVIDERS: ATTEND Physician Assistant Medical
PROC: 0W9G3ZZ Drainage of Peritoneal Cavity, Percutaneous Approach (ICD-10-PCS; principal; 2021-01-16)
DX: K74.60 Unspecified cirrhosis of liver (principal); R18.8 Other ascites; K21.9 Gastro-esophageal reflux disease without esophagitis; E11.9 Type 2 diabetes mellitus without complications; I10 Essential (primary) hypertension; F17.210 Nicotine dependence, cigarettes, uncomplicated; E03.9 Hypothyroidism, unspecified; F12.10 Cannabis abuse, uncomplicated; Z79.899 Other long term (current) drug therapy; Z88.0 Allergy status to penicillin; Z88.8 Allergy status to other drugs, medicaments and biological substances; Z91.013 Allergy to seafood; Z91.040 Latex allergy status; Z94.4 Liver transplant status
CPT/HCPCS: 49083

== ENCOUNTER 2021-01-28 10:25 | Day surgery (SDC) | payer MEDICARE ==
[2021-01-28 09:47] VITALS: BMI 20.9
[2021-01-28] MEDS ORDERED: Lidocaine 1% PF 5 ML VIAL ONE (10:47)
[2021-01-28] MEDS ORDERED: Sodium Bicarbonate 2.5 MEQ/5 ML VIAL ONE (10:47)
[2021-01-28 10:49] LABS: #Eosinphils 0.1 thou/uL (0.0-0.7); #Lymphocytes 0.5 thou/uL (1.20-3.40); #Monocytes 0.3 thou/uL (0.11-0.59); #Neutrophils 3.9 thou/uL (1.40-6.50); %Basophils 0.3 % (0.0-1.0); %Lymphocytes 10.9 % (21.0-51.0); %Monocytes 5.2 % (0.0-10.0); %Neutrophils 81.5 % (42.0-75.0); Hemoglobin 11.5 g/dL (12.0-16.0); Mean Corpuscular HGB CONC 35.2 g/dL (32.0-36.0); Mean Corpuscular Hemoglobin 31.5 pg (27.0-31.0); Mean Corpuscular Volume 89.4 fL (78.0-98.0); Mean Platelet Volume 7.1 fL (7.4-10.4); Platelet Count 88 thou/uL (130-400); RBC Distribution Width 13.3 % (11.5-14.5); Red Blood Cell (RBC) Count 3.66 mill/uL (4.20-5.40); White Blood Cell (WBC) Count 4.7 thou/uL (4.8-10.8)
[2021-01-28 10:59] LABS: INR-International Normal Ratio 1.2; Prothrombin Time 15.2 sec (12.0-14.7)
[2021-01-28 11:00] LABS: PTT 34.4 sec (22.9-36.1)
[2021-01-28 13:15] VITALS: BP 148/73; TEMP 97.9
== END 2021-01-28 12:00 | disposition home or self-care (01) ==
LOC: ULT 10:25
PROVIDERS: ATTEND Physician Assistant Medical
PROC: 0W9G3ZZ Drainage of Peritoneal Cavity, Percutaneous Approach (ICD-10-PCS; principal; 2021-01-28)
DX: K74.60 Unspecified cirrhosis of liver (principal); R18.8 Other ascites; E11.9 Type 2 diabetes mellitus without complications; I10 Essential (primary) hypertension; N28.9 Disorder of kidney and ureter, unspecified; E03.9 Hypothyroidism, unspecified; D64.9 Anemia, unspecified; F17.200 Nicotine dependence, unspecified, uncomplicated; F12.10 Cannabis abuse, uncomplicated; K21.9 Gastro-esophageal reflux disease without esophagitis; Z94.4 Liver transplant status; Z88.0 Allergy status to penicillin; Z88.8 Allergy status to other drugs, medicaments and biological substances; Z91.040 Latex allergy status; Z91.013 Allergy to seafood; Z90.49 Acquired absence of other specified parts of digestive tract; Z98.51 Tubal ligation status; Z86.19 Personal history of other infectious and parasitic diseases
CPT/HCPCS: 49083; 85025; 85610; 85730

== ENCOUNTER 2021-02-06 10:24 | Day surgery (SDC) | payer MEDICARE ==
[2021-02-06] MEDS ORDERED: Sodium Bicarbonate 2.5 MEQ/5 ML VIAL ONE (10:44)
[2021-02-06] MEDS ORDERED: Lidocaine 1% PF 5 ML VIAL ONE (10:44)
[2021-02-06 11:56] VITALS: BP 145/74; TEMP 98
== END 2021-02-06 11:20 | disposition home or self-care (01) ==
LOC: ULT 10:24
PROVIDERS: ATTEND Physician Assistant Medical
PROC: 0W9G3ZZ Drainage of Peritoneal Cavity, Percutaneous Approach (ICD-10-PCS; principal; 2021-02-06)
DX: K74.69 Other cirrhosis of liver (principal); R18.8 Other ascites; I85.10 Secondary esophageal varices without bleeding; K21.9 Gastro-esophageal reflux disease without esophagitis; E11.9 Type 2 diabetes mellitus without complications; E03.9 Hypothyroidism, unspecified; I10 Essential (primary) hypertension; F17.210 Nicotine dependence, cigarettes, uncomplicated; F12.10 Cannabis abuse, uncomplicated; Z86.19 Personal history of other infectious and parasitic diseases; Z79.899 Other long term (current) drug therapy; Z88.0 Allergy status to penicillin; Z88.8 Allergy status to other drugs, medicaments and biological substances; Z91.013 Allergy to seafood; Z91.040 Latex allergy status; Z94.4 Liver transplant status
CPT/HCPCS: 49083

== ENCOUNTER 2021-02-25 10:22 | Day surgery (SDC) | payer MEDICARE ==
[2021-02-25 11:46] VITALS: BMI 20.9
== END 2021-02-25 12:08 | disposition left against medical advice (07) ==
LOC: ULT 10:22
PROVIDERS: ATTEND Physician Assistant Medical
DX: R18.8 Other ascites (principal); Z53.20 Procedure and treatment not carried out because of patient's decision for unspecified reasons; Z88.0 Allergy status to penicillin; Z88.8 Allergy status to other drugs, medicaments and biological substances; Z91.013 Allergy to seafood; Z91.040 Latex allergy status

== ENCOUNTER → 2021-03-01 | Day surgery (SDC) | payer MEDICARE ==
[~2021-03-01] MED LIST changes: -Iopamidol 370 76% 75 ML VIAL FS ONE; +Lidocaine 1% PF 5 ML VIAL ONE; +Sodium Bicarbonate 2.5 MEQ/5 ML VIAL ONE
[2021-03-01 10:52] LABS: #Eosinphils 0.1 thou/uL (0.0-0.7); #Lymphocytes 0.6 thou/uL (1.20-3.40); #Monocytes 0.3 thou/uL (0.11-0.59); #Neutrophils 4.8 thou/uL (1.40-6.50); %Eosinophils 1.8 % (0.0-10.0); %Lymphocytes 10.5 % (21.0-51.0); %Monocytes 5.4 % (0.0-10.0); %Neutrophils 82.4 % (42.0-75.0); Mean Corpuscular HGB CONC 33.1 g/dL (32.0-36.0); Mean Corpuscular Hemoglobin 28.7 pg (27.0-31.0); Mean Corpuscular Volume 86.6 fL (78.0-98.0); Mean Platelet Volume 7.2 fL (7.4-10.4); Platelet Count 99 thou/uL (130-400); RBC Distribution Width 13.3 % (11.5-14.5); Red Blood Cell (RBC) Count 3.84 mill/uL (4.20-5.40); White Blood Cell (WBC) Count 5.8 thou/uL (4.8-10.8)
[2021-03-01 11:05] LABS: INR-International Normal Ratio 1.1; Prothrombin Time 14.6 sec (12.0-14.7)
[2021-03-01 11:06] LABS: PTT 35.4 sec (22.9-36.1)
[2021-03-01 11:50] VITALS: BP 123/78; TEMP 98.2
== END ==
LOC: ULT 10:12
PROVIDERS: ATTEND Physician Assistant Medical
PROC: 0W9G3ZZ Drainage of Peritoneal Cavity, Percutaneous Approach (ICD-10-PCS; principal; 2021-03-01)
DX: K74.69 Other cirrhosis of liver (principal); R18.8 Other ascites; E03.9 Hypothyroidism, unspecified; E11.9 Type 2 diabetes mellitus without complications; I10 Essential (primary) hypertension; F12.10 Cannabis abuse, uncomplicated; F17.210 Nicotine dependence, cigarettes, uncomplicated; K44.9 Diaphragmatic hernia without obstruction or gangrene; K21.9 Gastro-esophageal reflux disease without esophagitis; Z79.899 Other long term (current) drug therapy; Z88.0 Allergy status to penicillin; Z88.8 Allergy status to other drugs, medicaments and biological substances; Z91.013 Allergy to seafood; Z91.040 Latex allergy status; Z94.4 Liver transplant status
CPT/HCPCS: 49083; 85025; 85610; 85730

== ENCOUNTER 2021-03-04 13:31 | Inpatient (IN) | payer MEDICARE ==
[2021-03-04] MEDS ORDERED: Morphine 4 MG/ML VIAL ONE (14:45)
[2021-03-04 14:51] LABS: #Eosinphils 0.1 thou/uL (0.0-0.7); #Lymphocytes 0.5 thou/uL (1.20-3.40); #Monocytes 0.3 thou/uL (0.11-0.59); #Neutrophils 3.5 thou/uL (1.40-6.50); %Basophils 0.3 % (0.0-1.0); %Lymphocytes 12.1 % (21.0-51.0); %Monocytes 7.2 % (0.0-10.0); %Neutrophils 78.5 % (42.0-75.0); Hemoglobin 10.4 g/dL (12.0-16.0); Mean Corpuscular HGB CONC 33.4 g/dL (32.0-36.0); Mean Corpuscular Hemoglobin 28.2 pg (27.0-31.0); Mean Corpuscular Volume 84.3 fL (78.0-98.0); Mean Platelet Volume 7.6 fL (7.4-10.4); Platelet Count 90 thou/uL (130-400); RBC Distribution Width 13.2 % (11.5-14.5); Red Blood Cell (RBC) Count 3.71 mill/uL (4.20-5.40); White Blood Cell (WBC) Count 4.4 thou/uL (4.8-10.8)
[2021-03-04 15:15] LABS: Bilirubin Negative (Negative); Blood, Urine Negative (Negative); Clarity Clear (Clear); Glucose, Urine (Dipstick) Normal (Negative); Ketone, Urine Negative (Negative); Leukocyte Negative Leu/uL (Negative); Nitrite Negative (Negative); Protein, Urine (Dipstick) Negative (Neg-Trace); Specific Gravity, Urine 1.007 (1.002-1.036); Urobilinogen Normal mg/dL (Less than 2)
[2021-03-04 15:22] LABS: ALT (SGPT) 11 U/L (8-55); AST (SGOT) 15 U/L (5-34); Alkaline Phosphatase 100 U/L (40-110); Anion Gap 10 mmol/L (10-20); BUN (Urea Nitrogen) 24 mg/dL (9.8-20.1); Bilirubin, Total 0.5 mg/dL (0.2-1.2); Calc. Creatinine Clearance 0 mL/min (70-130); Calcium 8.5 mg/dL (7.8-10.44); Carbon Dioxide 24 mmol/L (23-31); Chloride 98 mmol/L (98-107); Globulin 3.7 g/dL (2.4-3.5); Glucose 95 mg/dL (80-115); Lipase 47 U/L (8-78); Potassium 3.3 mmol/L (3.5-5.1); Protein, Total 6.7 g/dL (5.8-8.1); Sodium 129 mmol/L (136-145)
[2021-03-04] MEDS ORDERED: Senokot S 8.6-50 MG TAB PO PRN (17:28)
[2021-03-04] MEDS ORDERED: Bisacodyl 5 MG TAB PO PRN (17:28)
[2021-03-04] MEDS ORDERED: Acetaminophen 325 MG TAB PO PRN (17:28)
[2021-03-04] MEDS ORDERED: Ondansetron PF 4 MG/2 ML Vial IVP PRN (17:28)
[2021-03-04] MEDS ORDERED: traMADol HCl 50 MG TAB PO PRN (17:31)
[2021-03-04] MEDS ORDERED: Ondansetron PF 4 MG/2 ML Vial ONE (18:15)
[2021-03-04] MEDS ORDERED: Potassium Chloride 20 MEQ/100 ML PREMIX BAG ONE (18:15)
[2021-03-04] MEDS ORDERED: Potassium Chloride 20 MEQ TAB ONE (18:15)
[2021-03-04] MEDS ORDERED: HYDROmorphone 0.5 MG/0.5 ML SYRINGE ONE ×2 (18:15→20:44)
[2021-03-04] MEDS ORDERED: Sodium Chloride 0.9% (PF) 10 ML VIAL FS PRN (18:45)
[2021-03-04] MEDS ORDERED: Pantoprazole 40 MG VIAL IVP SCH (21:00)
[2021-03-04] MEDS: Morphine 2 MG/ML VIAL SLOW IVP PRN (22:10)
[2021-03-04] MEDS: Albumin 25% 25 GM/100 ML BOT IVPB SCH ×2 (23:05→23:12)
[2021-03-04] MEDS: Nicotine 14 MG PATCH TD SCH (23:05)
[2021-03-04] MEDS: Pantoprazole 40 MG VIAL IVP SCH (23:20)
[2021-03-04 23:44] LABS: Creatinine, Urine 34.96 mg/dL (47-110); Protein, Urine Random Quant Less than 10 mg/dL (1-14); Sodium, Urine 40 mmol/L (Not Available); Urea Nitrogen, Random Urine 250 mg/dl
[2021-03-04 23:47] VITALS: BMI 18.8
[2021-03-04 23:59] LABS: Amphetamine Not Detected (NotDetected); Barbiturates Screen Not Detected (NotDetected); Benzodiazepine Screen Not Detected (NotDetected); Cocaine Metabolite Screen Not Detected (NotDetected); Methadone Not Detected (NotDetected); Methamphetamine Not Detected (NotDetected); Opiate Screen Detected (NotDetected); Oxycodone Screen Not Detected (NotDetected); Phencyclidine (PCP) Not Detected (NotDetected); THC/Cannabinoid Screen Detected (NotDetected); Tricyclic Screen Not Detected (NotDetected)
[2021-03-05] MEDS: Morphine 2 MG/ML VIAL SLOW IVP PRN ×5 (02:50→21:42)
[2021-03-05] MEDS: Albumin 25% 25 GM/100 ML BOT IVPB SCH ×3 (05:32→17:18)
[2021-03-05 07:03] LABS: #Eosinphils 0.1 thou/uL (0.0-0.7); #Lymphocytes 0.5 thou/uL (1.20-3.40); #Monocytes 0.3 thou/uL (0.11-0.59); #Neutrophils 1.6 thou/uL (1.40-6.50); %Eosinophils 2.3 % (0.0-10.0); %Lymphocytes 21.5 % (21.0-51.0); %Monocytes 10.3 % (0.0-10.0); Hemoglobin 8.9 g/dL (12.0-16.0); Mean Corpuscular HGB CONC 34.6 g/dL (32.0-36.0); Mean Corpuscular Hemoglobin 29.4 pg (27.0-31.0); Mean Corpuscular Volume 85.1 fL (78.0-98.0); Mean Platelet Volume 7.3 fL (7.4-10.4); Platelet Count 69 thou/uL (130-400); RBC Distribution Width 13.1 % (11.5-14.5); Red Blood Cell (RBC) Count 3.03 mill/uL (4.20-5.40); White Blood Cell (WBC) Count 2.4 thou/uL (4.8-10.8)
[2021-03-05 07:21] LABS: Anion Gap 12 mmol/L (10-20); Calc. Creatinine Clearance 25 mL/min (70-130); Calcium 8.4 mg/dL (7.8-10.44); Carbon Dioxide 23 mmol/L (23-31); Chloride 105 mmol/L (98-107); Potassium 4.1 mmol/L (3.5-5.1); Sodium 136 mmol/L (136-145)
[2021-03-05 07:26] LABS: BUN (Urea Nitrogen) 19 mg/dL (9.8-20.1); Glucose 83 mg/dL (80-115)
[2021-03-05] MEDS: Pantoprazole 40 MG VIAL IVP SCH ×2 (08:12→20:36)
[2021-03-05] MEDS: Magnesium Oxide 400 MG TAB PO SCH (09:39)
[2021-03-05] MEDS: Tacrolimus 1 MG CAP PO SCH (09:39)
[2021-03-05] MEDS: Venlafaxine HCl XR 150 MG CAP PO SCH (09:39)
[2021-03-05 13:36] LABS: SARS-CoV-2 PCR by NAA Not Detected (NotDetected)
[2021-03-05] MEDS ORDERED: Lorazepam 2 MG/ML VIAL SLOW IVP SCH (17:00)
[2021-03-05] MEDS ORDERED: traZODone HCl 50 MG TAB PO SCH (21:00)
[2021-03-05] MEDS ORDERED: Tacrolimus 0.5 MG CAP PO SCH (21:00)
[2021-03-05] MEDS ORDERED: Amlodipine 10 MG TAB PO SCH (21:00)
[2021-03-05] MEDS: Nicotine 14 MG PATCH TD SCH (23:24)
[2021-03-06] MEDS: Morphine 2 MG/ML VIAL SLOW IVP PRN ×3 (04:49→13:14)
[2021-03-06] MEDS ORDERED: Levothyroxine Sodium 50 MCG TAB PO SCH (06:00)
[2021-03-06] MEDS: Tacrolimus 1 MG CAP PO SCH (07:42)
[2021-03-06] MEDS: Pantoprazole 40 MG VIAL IVP SCH (07:42)
[2021-03-06] MEDS: Magnesium Oxide 400 MG TAB PO SCH (07:42)
[2021-03-06] MEDS: Venlafaxine HCl XR 150 MG CAP PO SCH (07:42)
[2021-03-06 07:55] VITALS: BP 144/63; TEMP 97.9
[2021-03-06 09:47] LABS: #Eosinphils 0.1 thou/uL (0.0-0.7); #Lymphocytes 0.6 thou/uL (1.20-3.40); #Monocytes 0.3 thou/uL (0.11-0.59); #Neutrophils 2.2 thou/uL (1.40-6.50); %Basophils 0.3 % (0.0-1.0); %Eosinophils 2.3 % (0.0-10.0); %Lymphocytes 18.6 % (21.0-51.0); %Monocytes 8.1 % (0.0-10.0); %Neutrophils 70.7 % (42.0-75.0); Hemoglobin 9.8 g/dL (12.0-16.0); Mean Corpuscular HGB CONC 33.3 g/dL (32.0-36.0); Mean Corpuscular Hemoglobin 28.5 pg (27.0-31.0); Mean Corpuscular Volume 85.7 fL (78.0-98.0); Mean Platelet Volume 7.1 fL (7.4-10.4); Platelet Count 84 thou/uL (130-400); RBC Distribution Width 13.2 % (11.5-14.5); Red Blood Cell (RBC) Count 3.45 mill/uL (4.20-5.40); White Blood Cell (WBC) Count 3.1 thou/uL (4.8-10.8)
[2021-03-06 09:53] LABS: INR-International Normal Ratio 1.3; Prothrombin Time 15.9 sec (12.0-14.7)
[2021-03-06 10:06] LABS: ALT (SGPT) Less than 7 U/L (8-55); AST (SGOT) 11 U/L (5-34); Albumin 3.8 g/dL (3.4-4.8); Alkaline Phosphatase 83 U/L (40-110); Anion Gap 13 mmol/L (10-20); BUN (Urea Nitrogen) 18 mg/dL (9.8-20.1); Bilirubin, Total 0.6 mg/dL (0.2-1.2); Calc. Creatinine Clearance 24 mL/min (70-130); Calcium 8.9 mg/dL (7.8-10.44); Carbon Dioxide 23 mmol/L (23-31); Chloride 103 mmol/L (98-107); Globulin 2.7 g/dL (2.4-3.5); Glucose 133 mg/dL (80-115); Potassium 4.1 mmol/L (3.5-5.1); Protein, Total 6.5 g/dL (5.8-8.1); Sodium 135 mmol/L (136-145)
[2021-03-06] MEDS ORDERED: hydrOXYzine 25 MG TAB PO PRN (13:19)
== END 2021-03-06 13:59 | disposition home or self-care (01) | DRG 682 ==
LOC: ERS 13:31 → T4-A 17:15
PROVIDERS: ADMIT Internal Medicine; ATTEND Internal Medicine
PROC: 0W9G3ZZ Drainage of Peritoneal Cavity, Percutaneous Approach (ICD-10-PCS; principal; 2021-03-01)
DX: N17.9 Acute kidney failure, unspecified (principal); E43 Unspecified severe protein-calorie malnutrition; E87.1 Hypo-osmolality and hyponatremia; D61.818 Other pancytopenia; R18.8 Other ascites; Z94.4 Liver transplant status; Z68.1 Body mass index [BMI] 19.9 or less, adult; R10.9 Unspecified abdominal pain; N13.30 Unspecified hydronephrosis; I12.9 Hypertensive chronic kidney disease with stage 1 through stage 4 chronic kidney disease, or unspecified chronic kidney disease; E11.22 Type 2 diabetes mellitus with diabetic chronic kidney disease; F12.10 Cannabis abuse, uncomplicated; E87.6 Hypokalemia; N18.30 Chronic kidney disease, stage 3 unspecified; E03.9 Hypothyroidism, unspecified; K21.9 Gastro-esophageal reflux disease without esophagitis; F41.9 Anxiety disorder, unspecified; Z86.19 Personal history of other infectious and parasitic diseases; Z98.51 Tubal ligation status; Z90.49 Acquired absence of other specified parts of digestive tract; Z88.8 Allergy status to other drugs, medicaments and biological substances; Z91.040 Latex allergy status; Z88.0 Allergy status to penicillin; Z91.013 Allergy to seafood; Z79.890 Hormone replacement therapy; Z79.899 Other long term (current) drug therapy; K44.9 Diaphragmatic hernia without obstruction or gangrene; K74.69 Other cirrhosis of liver
CPT/HCPCS: 36415; 49083; 71045; 74176; 80048; 80053; 80306; 81003; 82140; 82150; 82570; 83605; 83690; 84156; 84300; 84540; 85025; 85610; 85730; 93005; C9113; J1170; J1956; J2060; J2270; J2405; J3480; J7507; P9047; U0003; U0005

== ENCOUNTER 2021-03-29 10:16 | Day surgery (SDC) | payer MEDICARE ==
[2021-03-29] MEDS ORDERED: Sodium Bicarbonate 2.5 MEQ/5 ML VIAL ONE (10:33)
[2021-03-29] MEDS ORDERED: Lidocaine 1% PF 5 ML VIAL ONE (10:33)
[2021-03-29 14:33] VITALS: BP 169/76; TEMP 98.2; BMI 18.5
== END 2021-03-29 11:45 | disposition home or self-care (01) ==
LOC: ULT 10:16
PROVIDERS: ATTEND Physician Assistant Medical
PROC: 0W9G3ZZ Drainage of Peritoneal Cavity, Percutaneous Approach (ICD-10-PCS; principal; 2021-03-29)
DX: K74.60 Unspecified cirrhosis of liver (principal); R18.8 Other ascites; E03.9 Hypothyroidism, unspecified; E11.9 Type 2 diabetes mellitus without complications; I10 Essential (primary) hypertension; F17.200 Nicotine dependence, unspecified, uncomplicated; F12.10 Cannabis abuse, uncomplicated; K21.9 Gastro-esophageal reflux disease without esophagitis; Z79.899 Other long term (current) drug therapy; Z88.0 Allergy status to penicillin; Z88.8 Allergy status to other drugs, medicaments and biological substances; Z91.013 Allergy to seafood; Z91.041 Radiographic dye allergy status; Z94.4 Liver transplant status
CPT/HCPCS: 49083

== ENCOUNTER 2021-04-11 12:29 | Day surgery (SDC) | payer MEDICARE ==
[2021-04-11] MEDS ORDERED: Lidocaine 1% PF 5 ML VIAL ONE (12:45)
[2021-04-11] MEDS ORDERED: Sodium Bicarbonate 2.5 MEQ/5 ML VIAL ONE (12:45)
[2021-04-11 12:47] LABS: #Eosinphils 0.1 thou/uL (0.0-0.7); #Lymphocytes 0.5 thou/uL (1.20-3.40); #Monocytes 0.2 thou/uL (0.11-0.59); %Basophils 0.3 % (0.0-1.0); %Eosinophils 2.1 % (0.0-10.0); %Monocytes 3.9 % (0.0-10.0); %Neutrophils 82.7 % (42.0-75.0); Hemoglobin 10.7 g/dL (12.0-16.0); Mean Corpuscular HGB CONC 34.7 g/dL (32.0-36.0); Mean Corpuscular Hemoglobin 31.1 pg (27.0-31.0); Mean Corpuscular Volume 89.6 fL (78.0-98.0); Mean Platelet Volume 6.9 fL (7.4-10.4); Platelet Count 64 thou/uL (130-400); RBC Distribution Width 16.2 % (11.5-14.5); Red Blood Cell (RBC) Count 3.43 mill/uL (4.20-5.40); White Blood Cell (WBC) Count 4.8 thou/uL (4.8-10.8)
[2021-04-11 13:06] LABS: INR-International Normal Ratio 1.3; Prothrombin Time 16.1 sec (12.0-14.7)
[2021-04-11 13:07] LABS: PTT 36.1 sec (22.9-36.1)
[2021-04-11 13:24] VITALS: TEMP 98
[2021-04-11 14:02] VITALS: BP 130/66
== END 2021-04-11 14:02 | disposition home or self-care (01) ==
LOC: ULT 12:29
PROVIDERS: ATTEND Physician Assistant Medical
PROC: 0W9G3ZZ Drainage of Peritoneal Cavity, Percutaneous Approach (ICD-10-PCS; principal; 2021-04-11)
DX: K74.60 Unspecified cirrhosis of liver (principal); R18.8 Other ascites; K21.9 Gastro-esophageal reflux disease without esophagitis; E11.9 Type 2 diabetes mellitus without complications; I10 Essential (primary) hypertension; Z79.899 Other long term (current) drug therapy; Z88.0 Allergy status to penicillin; Z88.8 Allergy status to other drugs, medicaments and biological substances; Z91.013 Allergy to seafood; Z91.040 Latex allergy status; Z94.4 Liver transplant status
CPT/HCPCS: 36415; 49083; 85025; 85610; 85730

== ENCOUNTER 2021-04-22 12:31 | Day surgery (SDC) | payer MEDICARE ==
[2021-04-19 08:50] VITALS: BMI 20.9
[2021-04-22 14:29] VITALS: BP 151/87
== END 2021-04-22 13:50 | disposition home or self-care (01) ==
LOC: ULT 12:31
PROVIDERS: ATTEND Physician Assistant Medical
PROC: 0W9G3ZZ Drainage of Peritoneal Cavity, Percutaneous Approach (ICD-10-PCS; principal; 2021-04-22)
DX: K74.60 Unspecified cirrhosis of liver (principal); R18.8 Other ascites; Z88.0 Allergy status to penicillin; Z88.8 Allergy status to other drugs, medicaments and biological substances; Z91.013 Allergy to seafood; Z91.040 Latex allergy status; Z94.4 Liver transplant status
CPT/HCPCS: 49083

== ENCOUNTER 2021-05-01 10:40 | Day surgery (SDC) | payer MEDICARE ==
[2021-04-30 12:53] VITALS: BMI 20.9
[2021-05-01] MEDS ORDERED: Sodium Bicarbonate 2.5 MEQ/5 ML VIAL ONE (10:48)
[2021-05-01] MEDS ORDERED: Lidocaine 1% PF 5 ML VIAL ONE (10:48)
[2021-05-01 13:50] VITALS: TEMP 97.9
[2021-05-01 14:09] VITALS: BP 119/65
== END 2021-05-01 11:43 | disposition home or self-care (01) ==
LOC: ULT 10:40
PROVIDERS: ATTEND Physician Assistant Medical
PROC: 0W9G3ZZ Drainage of Peritoneal Cavity, Percutaneous Approach (ICD-10-PCS; principal; 2021-05-01)
DX: K74.60 Unspecified cirrhosis of liver (principal); R18.8 Other ascites; K21.9 Gastro-esophageal reflux disease without esophagitis; E11.9 Type 2 diabetes mellitus without complications; I10 Essential (primary) hypertension; F17.210 Nicotine dependence, cigarettes, uncomplicated; Z79.899 Other long term (current) drug therapy; Z88.0 Allergy status to penicillin; Z88.8 Allergy status to other drugs, medicaments and biological substances; Z91.030 Bee allergy status; Z91.040 Latex allergy status; Z94.4 Liver transplant status
CPT/HCPCS: 49083

== ENCOUNTER 2021-05-08 10:22 | Day surgery (SDC) | payer MEDICARE ==
[2021-05-06 11:44] VITALS: BMI 19.9
[2021-05-08] MEDS ORDERED: Lidocaine 1% PF 5 ML VIAL ONE (10:27)
[2021-05-08] MEDS ORDERED: Sodium Bicarbonate 2.5 MEQ/5 ML VIAL ONE (10:27)
[2021-05-08 12:30] VITALS: TEMP 97.9
[2021-05-08 14:10] VITALS: BP 121/66
== END 2021-05-08 11:29 | disposition home or self-care (01) ==
LOC: ULT 10:22
PROVIDERS: ATTEND Physician Assistant Medical
PROC: 0W9G3ZZ Drainage of Peritoneal Cavity, Percutaneous Approach (ICD-10-PCS; principal; 2021-05-08)
DX: K74.60 Unspecified cirrhosis of liver (principal); R18.8 Other ascites; Z88.0 Allergy status to penicillin; Z88.8 Allergy status to other drugs, medicaments and biological substances; Z91.013 Allergy to seafood; Z91.040 Latex allergy status; Z94.4 Liver transplant status
CPT/HCPCS: 49083

== ENCOUNTER 2021-05-15 10:26 | Day surgery (SDC) | payer MEDICARE ==
[2021-05-14 13:05] VITALS: BMI 20.9
[2021-05-15 10:42] LABS: #Eosinphils 0.2 thou/uL (0.0-0.7); #Lymphocytes 0.6 thou/uL (1.20-3.40); #Monocytes 0.3 thou/uL (0.11-0.59); %Basophils 0.3 % (0.0-1.0); %Eosinophils 3.9 % (0.0-10.0); %Lymphocytes 12.2 % (21.0-51.0); %Neutrophils 78.7 % (42.0-75.0); Hemoglobin 12.1 g/dL (12.0-16.0); Mean Corpuscular HGB CONC 32.1 g/dL (32.0-36.0); Mean Corpuscular Volume 93.4 fL (78.0-98.0); Mean Platelet Volume 7.1 fL (7.4-10.4); Platelet Count 71 thou/uL (130-400); RBC Distribution Width 14.9 % (11.5-14.5); Red Blood Cell (RBC) Count 4.02 mill/uL (4.20-5.40); White Blood Cell (WBC) Count 5.1 thou/uL (4.8-10.8)
[2021-05-15 10:52] LABS: INR-International Normal Ratio 1.1; Prothrombin Time 14.4 sec (12.0-14.7)
[2021-05-15 10:53] LABS: PTT 33.2 sec (22.9-36.1)
[2021-05-15] MEDS ORDERED: Sodium Bicarbonate 2.5 MEQ/5 ML VIAL ONE (11:07)
[2021-05-15] MEDS ORDERED: Lidocaine 1% PF 5 ML VIAL ONE (11:07)
[2021-05-15 12:27] VITALS: BP 139/70
== END 2021-05-15 11:55 | disposition home or self-care (01) ==
LOC: ULT 10:26
PROVIDERS: ATTEND Physician Assistant Medical
PROC: 0W9G3ZZ Drainage of Peritoneal Cavity, Percutaneous Approach (ICD-10-PCS; principal; 2021-05-15)
DX: K74.60 Unspecified cirrhosis of liver (principal); R18.8 Other ascites; Z88.0 Allergy status to penicillin; Z88.8 Allergy status to other drugs, medicaments and biological substances; Z91.013 Allergy to seafood; Z91.040 Latex allergy status
CPT/HCPCS: 36415; 49083; 85025; 85610; 85730

== ENCOUNTER 2021-05-23 12:49 | Day surgery (SDC) | payer MEDICARE ==
[2021-05-21 10:55] VITALS: BMI 20.9
[2021-05-23] MEDS ORDERED: Lidocaine 1% PF 5 ML VIAL ONE (13:04)
[2021-05-23] MEDS ORDERED: Sodium Bicarbonate 2.5 MEQ/5 ML VIAL ONE (13:04)
[2021-05-23 16:02] VITALS: BP 129/68
== END 2021-05-23 14:15 | disposition home or self-care (01) ==
LOC: ULT 12:49
PROVIDERS: ATTEND Physician Assistant Medical
PROC: 0W9G3ZZ Drainage of Peritoneal Cavity, Percutaneous Approach (ICD-10-PCS; principal; 2021-05-23)
DX: K74.60 Unspecified cirrhosis of liver (principal); R18.8 Other ascites; N28.1 Cyst of kidney, acquired; Z88.0 Allergy status to penicillin; Z88.8 Allergy status to other drugs, medicaments and biological substances; Z91.013 Allergy to seafood; Z91.040 Latex allergy status
CPT/HCPCS: 49083; 76770

== ENCOUNTER 2021-06-05 13:23 | Day surgery (SDC) | payer MEDICARE ==
[2021-06-04 14:15] VITALS: BMI 20.9
[2021-06-05] MEDS ORDERED: Albumin 25% 100 ML ONE (13:38)
[2021-06-05] MEDS ORDERED: Sodium Bicarbonate 2.5 MEQ/5 ML VIAL ONE (13:38)
[2021-06-05] MEDS ORDERED: Lidocaine 1% PF 5 ML VIAL ONE (13:38)
[2021-06-05 15:34] VITALS: TEMP 97.9
== END 2021-06-05 14:45 | disposition home or self-care (01) ==
LOC: ULT 13:23
PROVIDERS: ATTEND Physician Assistant Medical
PROC: 0W9G3ZZ Drainage of Peritoneal Cavity, Percutaneous Approach (ICD-10-PCS; principal; 2021-06-05)
DX: K74.60 Unspecified cirrhosis of liver (principal); R18.8 Other ascites; Z88.0 Allergy status to penicillin; Z88.8 Allergy status to other drugs, medicaments and biological substances; Z91.040 Latex allergy status; Z91.013 Allergy to seafood; Z94.4 Liver transplant status
CPT/HCPCS: 49083; P9047